=== PATIENT | female | born 1980 | race Caucasian/White ===

== ENCOUNTER 2018-08-11 16:35 | Inpatient (IN) | payer OTHER ==
[2018-08-11] MEDS ORDERED: DEXTROSE 5%-LACTATED RINGERS 1,000 ML IV SCH (17:00)
[2018-08-11] MEDS ORDERED: AMPICILLIN - 2 GM in SODIUM CHLORIDE 100 ML IVPB ONE (17:00)
[2018-08-11] MEDS ORDERED: AMPICILLIN SODIUM 2 GM VIAL ONE (17:03)
[2018-08-11 17:14] VITALS: BMI 33.1
[2018-08-11] MEDS ORDERED: TUBERCULIN PPD 5 TU/0.1ML SYRINGE (IN PATIENT USE ONLY) ID ONE ×2 (18:00)
[2018-08-11 19:16] LABS: BASO % 0.1 % (0-2.0); EOS % 0.3 % (0-4.5); HEMATOCRIT 36.9 % (32.4-45.2); HEMOGLOBIN 12.9 GM/dL (10.7-15.3); LYMPH % 14.5 % (8-40); MCH 31.4 pg (25.7-33.7); MCHC 34.9 g/dl (32.0-36.0); MONO % 5.1 % (3.8-10.2); PLATELET COUNT 150 K/MM3 (134-434); RDW 14.4 % (11.6-15.6); WHITE BLOOD COUNT 6.5 K/mm3 (4.0-10.0)
[2018-08-11 19:47] LABS: INR 0.97 (0.83-1.09); PROTHROMBIN TIME (PATIENT) 11.5 SEC (9.7-13.0)
[2018-08-11 19:49] LABS: ACTIVATED PTT 26.9 SECONDS (25.2-36.5)
[2018-08-11 19:51] LABS: ANION GAP 10 MMOL/L (8-16); BLOOD UREA NITROGEN 10 mg/dL (7-18); CALCIUM 7.6 mg/dL (8.5-10.1); CHLORIDE 106 mmol/L (98-107); CO2 23 mmol/L (21-32); CREATININE 0.6 mg/dL (0.55-1.3); GLUCOSE,RANDOM 166 mg/dL (74-106); POTASSIUM 3.6 mmol/L (3.5-5.1); SODIUM 138 mmol/L (136-145)
--- NOTE | 2018-08-11 19:51 | HP ---
Past Medical History - Primary Care Physician PCP:: Greg Vázquez - Admission Chief Complaint: 39 weeks, prom History Source: Patient Limitations to Obtaining History: No Limitations - Past Medical History ...: 4 ...Para: 3 ...Term: 2 ...: 1 ...EDC by Sono: 08/16/18 - Past Surgical History Hx Myomectomy: No Hx Transabdominal Cerclage: No - Smoking History Smoking history: Never smoked Have you smoked in the past 12 months: No - Alcohol/Substance Use Hx Alcohol Use: No History of Substance Use: reports: None - Social History History of Recent Travel: No Home Medications - Allergies Allergies/Adverse Reactions: Allergies Allergy/AdvReac Type Severity Reaction Status Date / Time No Known Allergies Allergy Verified 08/11/18 17:20 - Home Medications Home Medications: Ambulatory Orders Pnv95/Iron Fum/Folic Acid [ Caplet] 1 tab PO DAILY 02/15/16 Review of Systems - Review of Systems Constitutional: reports: No Symptoms Eyes: reports: No Symptoms HENT: reports: No Symptoms Neck: reports: No Symptoms Cardiovascular: reports: No Symptoms Gastrointestinal: reports: No Symptoms Genitourinary: reports: No Symptoms Musculoskeletal: reports: No Symptoms Integumentary: reports: No Symptoms Neurological: reports: No Symptoms Endocrine: reports: No Symptoms Hematology/Lymphatic: reports: No Symptoms Psychiatric: reports: No Symptoms Physical Exam - Maternity Vital Signs: Vital Signs Temperature 98.0 F 08/11/18 18:00 Pulse Rate 78 08/11/18 19:00 Respiratory Rate 20 08/11/18 19:00 Blood Pressure 126/69 08/11/18 19:00 O2 Sat by Pulse Oximetry (%) Constitutional: Yes: Well Nourished, No Distress, Calm Eyes: Yes: WNL, Conjunctiva Clear, EOM Intact HENT: Yes: WNL, Atraumatic, Normocephalic Neck: Yes: WNL, Supple, Trachea Midline Cardiovascular: Yes: WNL, Regular Rate and Rhythm Breast(s): Yes: WNL - Abdominal Exam/OB Contractions: No Intensity: Unaware Monitor Mode: External Heart Rate Location: [facility] Category: I Accelerations: Uniform Decelerations: None - Vaginal Exam/OB Vaginal Bleediing: No Speculum Exam: No Dilatation (cm): 1 Effacement (%): 20 Amniotic Membrane Status: Ruptured Nitrazine Test: Positive Amniotic Fluid: Yes: Clear Presentation: Vertex/Position Station: -2 - Physical Exam Musculoskeletal: Yes: WNL Edema: Yes Edema: LLE: Trace, RLE: Trace Deep Tendon Reflex Grade: Normal +2 Psychiatric: Yes: WNL - Labs Lab Results: CBC, BMP 08/11/18 18:50 Hemorrhage Risk Assessment - Risk Factors Medium Risk Factors: Yes: None High Risk Factors: Yes: None Risk Score: 1 Risk Level: Medium Risk Problem List - Problems (1) with 39 completed weeks gestation Code(s): Z3A.39 - 39 WEEKS GESTATION OF (2) with 39 completed weeks gestation Code(s): Z3A.39 - 39 WEEKS GESTATION OF (3) PROM (premature rupture of membranes) Code(s): O42.90 - ANDRY ROM, 7TH0 BETW RUPT & ONST LABR, UNSP WEEKS OF GEST Qualifiers: PROM onset of labor timing: onset of labor within 24 hours of rupture PROM gestational age: -third trimester Qualified Code(s): O42.013 - premature rupture of membranes, onset of labor within 24 hours of rupture, third trimester Assessment/Plan plan admit, if no contraction will do cervidil induction rba explained
[2018-08-11] MEDS ORDERED: PROMETHAZINE HCL 25 MG/1 ML VIAL IVPUSH ONE (19:58)
[2018-08-11] MEDS ORDERED: BUTORPHANOL TARTRATE 1 MG/ML VIAL IVPUSH ONE (19:58)
[2018-08-11] MEDS ORDERED: DINOPROSTONE 10 MG VAGINAL SUPPOSITORY VG ONE (19:59)
--- NOTE | 2018-08-11 20:28 | PN ---
Progress Note (short form) - Note Progress Note: Patient is Para 3, at term, with PROM at 11:30 am. Occ. ctx, FH cat 1. Cx 1m, 20% effaced, sta -2. Cervidil placed.
[2018-08-11] MEDS ORDERED: AMPICILLIN SODIUM 1 GM VIAL ONE (21:00)
[2018-08-11] MEDS: AMPICILLIN - 1 GM in SODIUM CHLORIDE 100 ML IVPB SCH (21:07)
--- NOTE | 2018-08-11 23:00 | PN ---
Progress Note (short form) - Note Progress Note: 2245 hrs. Pt. was trying to push. Cx 2 cm., -2. Advised not to push yet. Stadol 1mg offered.
[2018-08-11 23:37] LABS: COCAINE, UR NEGATIVE ng/ml (CUTOFF=300); METHADONE, UR NEGATIVE ng/ml (CUTOFF=300); OPIATES, URI NEGATIVE ng/ml (CUTOFF=300); PHENCYCLIDINE,URINE NEGATIVE ng/ml (CUTOFF=25); URINE AMPHETAMINES NEGATIVE ng/ml (CUTOFF=500); URINE BARBITURATES NEGATIVE ng/ml (CUTOFF=200); URINE BENZODIAZEPINES NEGATIVE ng/ml (CUTOFF=200)
[2018-08-12] MEDS ORDERED: BUTORPHANOL TARTRATE 1 MG/ML VIAL ONE ×2 (00:30)
[2018-08-12] MEDS ORDERED: PROMETHAZINE HCL 25 MG/1 ML VIAL ONE (00:30)
[2018-08-12] MEDS ORDERED: AMPICILLIN SODIUM 1 GM VIAL ONE (00:30)
[2018-08-12] MEDS: AMPICILLIN - 1 GM in SODIUM CHLORIDE 100 ML IVPB SCH ×2 (01:02→05:14)
[2018-08-12] MEDS ORDERED: OXYTOCIN 20 UNITS in 0.9% NS 20 UNIT/1,000 ML INFUS.BAG IV ONE (03:10)
[2018-08-12] MEDS ORDERED: WITCH HAZEL 50% (TUCKS) 40 PAD/JAR PAD TP PRN (03:29)
[2018-08-12] MEDS ORDERED: METHYLERGONOVINE MALEATE 0.2 MG/1 ML AMP IM PRN (03:29)
[2018-08-12] MEDS ORDERED: BENZOCAINE 28 GM HEMORRHOIDAL OINTMENT TP PRN (03:29)
[2018-08-12] MEDS ORDERED: BENZOCAINE 20% 57 GM BOTTLE TP PRN (03:29)
[2018-08-12] MEDS ORDERED: BISACODYL 10 MG SUPP.RECT RC PRN (03:29)
[2018-08-12] MEDS ORDERED: D5W-LR W/ 20 UNITS OXYTOCIN 1,000 ML IV SCH (03:30)
[2018-08-12] MEDS: ACETAMINOPHEN 325 MG TABLET (FP) PO PRN ×4 (03:35→20:42)
[2018-08-12] MEDS: IBUPROFEN 600 MG TABLET (FP) PO PRN ×3 (03:35→20:42)
[2018-08-12] MEDS ORDERED: OXYTOCIN 20 UNITS in 0.9% NS 20 UNIT/1,000 ML INFUS.BAG IV SCH (04:00)
[2018-08-12] MEDS: FERROUS SO4 325 MG TABLET (FP) PO SCH ×2 (08:00→17:23)
[2018-08-12] MEDS ORDERED: FLU VACCINE QUAD 60 MCG/0.5 ML (MDV 18-19) IM ONE (10:00)
[2018-08-12] MEDS: PRENATAL VITAMINS W/ FOLIC ACID TABLET (FP) PO SCH (10:58)
[2018-08-12] MEDS ORDERED: DIPHTH,PERTUSS(ACELL),TET 0.5 ML DISP.SYRIN IM ONE (19:00)
[2018-08-13 07:19] LABS: BASO % 0.4 % (0-2.0); EOS % 1.6 % (0-4.5); HEMATOCRIT 31.8 % (32.4-45.2); HEMOGLOBIN 11.1 GM/dL (10.7-15.3); LYMPH % 29.2 % (8-40); MCH 31.3 pg (25.7-33.7); MCHC 34.8 g/dl (32.0-36.0); MEAN CELL VOLUME 89.9 fl (80-96); MEAN PLT VOLUME 9.3 fl (7.5-11.1); NEUT % 62.8 % (42.8-82.8); PLATELET COUNT 132 K/MM3 (134-434); RBC 3.54 M/mm3 (3.60-5.2); RDW 14.5 % (11.6-15.6); WHITE BLOOD COUNT 5.4 K/mm3 (4.0-10.0)
[2018-08-13] MEDS: ACETAMINOPHEN 325 MG TABLET (FP) PO PRN ×2 (08:28→21:07)
[2018-08-13] MEDS: IBUPROFEN 600 MG TABLET (FP) PO PRN ×2 (08:29→21:06)
[2018-08-13] MEDS: FERROUS SO4 325 MG TABLET (FP) PO SCH ×2 (08:29→16:55)
[2018-08-13] MEDS: PRENATAL VITAMINS W/ FOLIC ACID TABLET (FP) PO SCH (09:12)
--- NOTE | 2018-08-13 15:13 | PN ---
Progress Note (short form) - Note Progress Note: ppd 1 doing well, no c/o , voids ok CBC, BMP 08/13/18 06:44 08/11/18 18:50 Last Vital Signs Temp Pulse Resp BP Pulse Ox 97.7 F 64 18 120/69 99 08/13/18 08:50 08/13/18 08:50 08/13/18 08:50 08/13/18 08:50 08/12/18 04:56 abdomen soft, uterus firm, non tender lochia mild , no calf tenderness plan ambulate , plan for d/c home in am Problem List - Problems (1) with 39 completed weeks gestation Code(s): Z3A.39 - 39 WEEKS GESTATION OF (2) with 39 completed weeks gestation Code(s): Z3A.39 - 39 WEEKS GESTATION OF (3) PROM (premature rupture of membranes) Code(s): O42.90 - ANDRY ROM, 7TH0 BETW RUPT & ONST LABR, UNSP WEEKS OF GEST Qualifiers: PROM onset of labor timing: onset of labor within 24 hours of rupture PROM gestational age: -third trimester Qualified Code(s): O42.013 - premature rupture of membranes, onset of labor within 24 hours of rupture, third trimester
[2018-08-13] MEDS ORDERED: SENNOSIDES/DOCUSATE COMBO (SENNA PLUS) TABLET (UD) PO PRN (22:00)
[2018-08-14] MEDS: FERROUS SO4 325 MG TABLET (FP) PO SCH (07:50)
[2018-08-14] MEDS: IBUPROFEN 600 MG TABLET (FP) PO PRN (07:57)
[2018-08-14] MEDS: ACETAMINOPHEN 325 MG TABLET (FP) PO PRN (07:58)
--- NOTE | 2018-08-14 08:54 | DS ---
Physical Exam-COMMERCIAL FINANCE ANALYST Vital Signs: Vital Signs Temperature 98.3 F 08/13/18 22:00 Pulse Rate 60 08/13/18 22:00 Respiratory Rate 20 08/13/18 22:00 Blood Pressure 125/74 08/13/18 22:00 O2 Sat by Pulse Oximetry (%) 99 08/12/18 04:56 Constitutional: Yes: Well Nourished, No Distress, Calm Eyes: Yes: WNL, Conjunctiva Clear, EOM Intact HENT: Yes: WNL, Atraumatic, Normocephalic Neck: Yes: WNL, Supple, Trachea Midline Cardiovascular: Yes: WNL, Regular Rate and Rhythm Respiratory: Yes: WNL, Regular, CTA Bilaterally Gastrointestinal: Yes: WNL ...Rectal Exam: Yes: WNL Renal/: Yes: WNL ....Post : Yes: Uterus firm, Uterus non-tender, Slight lochia rubra Breast(s): Yes: WNL Musculoskeletal: Yes: WNL Extremities: Yes: WNL Edema: No Integumentary: Yes: WNL Neurological: Yes: WNL, Alert, Oriented ...Motor Strength: WNL Psychiatric: Yes: WNL, Alert, Oriented Labs: CBC, BMP 08/13/18 06:44 08/11/18 18:50 Delivery - Delivery Vaginal Delivery: Spontaneous (no complication) Type of Anesthesia: None Episiotomy/Laceration: None EBL (cc): 300 Delivery, Single - Stages of Labor Date 1st Stage Initiatied: 08/11/18 Time 1st Stage Initiated: 23:00 Date 2nd Stage Initiated: 08/12/18 Time 2nd Stage Initiated: 03:00 Date of Delivery: 08/12/18 Time of Delivery: 03:13 Time Placenta Delivered: 03:15 Placenta: Yes: Spontaneous - 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: Comunas: Lary Latif Infant Gender: Female Weight: 8 lb 5 oz Position: Left, OA Total Hours ROM (Hrs/Mins): 15hr/45mins - 1 Minute Total Score: 9 5 Minutes Total Score: 9 - Feeding Plan Initial Plan: Elected not to breastfeed exclusively throughout hospitalization Discharge Summary Reason For Visit: LABOR Current Active Problems PROM (premature rupture of membranes) (Acute) with 39 completed weeks gestation (Acute) with 39 completed weeks gestation (Acute) Procedures: Principal: AGUSTÍN Hospital Course: no complication Condition: Good - Instructions Diet, Activity, Other Instructions: regular diet, no intercourse, follow up clinic 4 weeks, if pain, heavy vaginal bleeding , fever call MD Referrals: Greg Vázquez MD [Staff Physician] - Disposition: HOME - Home Medications Comprehensive Discharge Medication List: Ambulatory Orders Pnv95/Iron Fum/Folic Acid [ Caplet] 1 tab PO DAILY 02/15/16 Ibuprofen [Motrin -] 600 mg PO QID #28 tablet 08/12/18
[2018-08-14] MEDS: PRENATAL VITAMINS W/ FOLIC ACID TABLET (FP) PO SCH (09:40)
[2018-08-14 10:26] VITALS: BP 119/75; PULSE 69; TEMP 98.4
== END 2018-08-14 12:50 | disposition home or self-care (01) | DRG 560 ==
LOC: JLDR 16:35 → J3W 08-12 04:55
PROVIDERS: ADMIT Obstetrics & Gynecology; ATTEND Obstetrics & Gynecology
PROC: 10E0XZZ Delivery of Products of Conception, External Approach (ICD-10-PCS; principal; 2018-08-12)
PROC: 3E0P7VZ Introduction of Hormone into Female Reproductive, Via Natural or Artificial Opening (ICD-10-PCS; 2018-08-12)
DX: O42.02 Full-term premature rupture of membranes, onset of labor within 24 hours of rupture (principal); Z3A.39 39 weeks gestation of pregnancy; Z37.0 Single live birth
CPT/HCPCS: 36415; 59409; 80048; 80307; 85025; 85610; 85730; 86593; 86850; 86900; 86901; 90686; 90715; G0008

== ENCOUNTER 2022-05-14 11:05 | Inpatient (IN) | payer OTHER ==
[2022-05-14] MEDS ORDERED: DEXTROSE 5%-LACTATED RINGERS 1,000 ML IV SCH (11:30)
[2022-05-14] MEDS ORDERED: PROMETHAZINE HCL 25 MG/1 ML VIAL IVPUSH ONE (11:30)
[2022-05-14] MEDS ORDERED: BUTORPHANOL TARTRATE 2 MG/ML VIAL IVPUSH ONE (11:30)
[2022-05-14] MEDS ORDERED: BUTORPHANOL TARTRATE 2 MG/ML VIAL ONE (12:07)
[2022-05-14] MEDS ORDERED: PROMETHAZINE HCL 25 MG/1 ML VIAL ONE (12:07)
[2022-05-14 13:27] LABS: BASO % 0.2 % (0-2.0); EOS % 0.1 % (0-4.5); HEMATOCRIT 40.5 % (32.4-45.2); HEMOGLOBIN 13.6 GM/dL (10.7-15.3); LYMPH % 12.8 % (8-40); MCH 29.9 pg (25.7-33.7); MCHC 33.6 g/dl (32.0-36.0); MEAN PLT VOLUME 10.6 fl (7.5-11.1); MONO % 3.4 % (3.8-10.2); NEUT % 83.5 % (42.8-82.8); PLATELET COUNT 120 10^3/uL (134-434); RBC 4.55 M/mm3 (3.60-5.2); RDW 14.2 % (11.6-15.6)
[2022-05-14 13:31] LABS: INR 0.95 (0.83-1.09); PROTHROMBIN TIME (PATIENT) 10.9 SEC (9.7-13.0)
[2022-05-14 13:35] LABS: ACTIVATED PTT 28.9 SECONDS (25.2-36.5)
[2022-05-14 13:38] VITALS: BMI 29.7
[2022-05-14 13:48] LABS: CALCIUM 8.7 mg/dL (8.5-10.1)
[2022-05-14 13:49] LABS: BLOOD UREA NITROGEN 11.7 mg/dL (7-18)
[2022-05-14 13:52] LABS: CREATININE 0.5 mg/dL (0.55-1.3)
[2022-05-14] MEDS ORDERED: OXYTOCIN 20 UNITS in 0.9% NS 20 UNIT/1,000 ML INFUS.BAG IV ONE ×2 (14:24→15:46)
[2022-05-14] MEDS ORDERED: WITCH HAZEL 50% (TUCKS) 40 PAD/JAR PAD TP PRN (14:55)
[2022-05-14] MEDS ORDERED: oxyCODONE HCL 5 MG TABLET PO PRN (14:55)
[2022-05-14] MEDS ORDERED: BISACODYL 10 MG SUPP.RECT RC PRN (14:55)
[2022-05-14] MEDS ORDERED: ACETAMINOPHEN 325 MG TABLET (FP) PO PRN (14:55)
[2022-05-14] MEDS ORDERED: BENZOCAINE 20% 57 GM BOTTLE TP PRN (14:55)
[2022-05-14] MEDS ORDERED: BENZOCAINE 28 GM HEMORRHOIDAL OINTMENT TP PRN (14:55)
[2022-05-14] MEDS ORDERED: METHYLERGONOVINE MALEATE 0.2 MG/1 ML AMP IM PRN (14:55)
[2022-05-14] MEDS ORDERED: OXYTOCIN 20 UNITS in 0.9% NS 20 UNIT/1,000 ML INFUS.BAG IV SCH (15:00)
[2022-05-14] MEDS ORDERED: ACETAMINOPHEN 325 MG TABLET (FP) ONE (15:46)
[2022-05-14] MEDS: IBUPROFEN 600 MG TABLET (FP) PO PRN (18:05)
[2022-05-15] MEDS: IBUPROFEN 600 MG TABLET (FP) PO PRN ×4 (00:24→21:24)
[2022-05-15 09:40] LABS: BASO % 0.2 % (0-2.0); EOS % 0.2 % (0-4.5); HEMOGLOBIN 12.5 GM/dL (10.7-15.3); LYMPH % 16.9 % (8-40); MCH 30.5 pg (25.7-33.7); MCHC 33.9 g/dl (32.0-36.0); MEAN CELL VOLUME 90.1 fl (80-96); MEAN PLT VOLUME 10.9 fl (7.5-11.1); MONO % 3.2 % (3.8-10.2); NEUT % 79.5 % (42.8-82.8); PLATELET COUNT 99 10^3/uL (134-434); RBC 4.11 M/mm3 (3.60-5.2); RDW 14.5 % (11.6-15.6); WHITE BLOOD COUNT 6.9 K/mm3 (4.0-10.0)
[2022-05-15] MEDS ORDERED: SENNOSIDES/DOCUSATE COMBO (SENNA PLUS) TABLET (UD) PO PRN (22:00)
[2022-05-16] MEDS: IBUPROFEN 600 MG TABLET (FP) PO PRN ×2 (01:50→08:11)
[2022-05-16 09:15] VITALS: BP 104/55; PULSE 70; RESP 18; TEMP 98
== END 2022-05-16 14:38 | disposition home or self-care (01) | DRG 560 ==
LOC: JLDR 11:05 → J3W 17:46
PROVIDERS: ADMIT Obstetrics & Gynecology; ATTEND Obstetrics & Gynecology
PROC: 10E0XZZ Delivery of Products of Conception, External Approach (ICD-10-PCS; principal; 2022-05-14)
DX: O36.63X0 Maternal care for excessive fetal growth, third trimester, not applicable or unspecified (principal); O24.420 Gestational diabetes mellitus in childbirth, diet controlled; O77.0 Labor and delivery complicated by meconium in amniotic fluid; Z3A.38 38 weeks gestation of pregnancy; Z37.0 Single live birth
CPT/HCPCS: 36415; 59409; 80048; 82962; 85025; 85610; 85730; 86780; 86850; 86900; 86901; C9803-CS; U0003; U0005

== ENCOUNTER 2022-07-16 04:05 | Day surgery (SDC) | payer OTHER ==
[2022-07-10 12:45] VITALS: BMI 35.0
[~2022-07-16 04:05] MED LIST: ceFAZolin SODIUM 1 GM VIAL IVPB ONE
[2022-07-16] MEDS ORDERED: ROCURONIUM BROMIDE 50 MG/5 ML SYRINGE ONE (13:16)
[2022-07-16] MEDS ORDERED: SUCCINYLCHOLINE CHLORIDE 200 MG/10 ML SYRINGE ONE (13:16)
[2022-07-16] MEDS ORDERED: LIDOCAINE HCL/PF 2% SDV 5ML VIAL ONE (13:16)
[2022-07-16] MEDS ORDERED: MIDAZOLAM HCL 2 MG/2 ML SINGLE DOSE VIAL ONE (13:16)
[2022-07-16] MEDS ORDERED: PROPOFOL 20 ML ONE (13:16)
[2022-07-16] MEDS ORDERED: DEXAMETHASONE SOD PHOSPHATE 4 MG/1 ML VIAL ONE (13:50)
[2022-07-16] MEDS ORDERED: ceFAZolin SODIUM 1 GM VIAL ONE (13:50)
[2022-07-16] MEDS ORDERED: ceFAZolin SODIUM 1 GM VIAL IVPB ONE (13:50)
[2022-07-16] MEDS ORDERED: KETOROLAC TROMETHAMINE 30 MG/1 ML VIAL ONE (13:54)
[2022-07-16] MEDS ORDERED: ONDANSETRON 4 MG/2 ML VIAL ONE (13:54)
[2022-07-16] MEDS ORDERED: BUPIVACAINE HCL/PF 0.5% (5MG/ML) 10 ML VIAL NR ONE (14:06)
[2022-07-16] MEDS ORDERED: NEOSTIGMINE METHYLSULFATE 0.5 MG/1 ML - 10 ML MDV ONE (14:18)
[2022-07-16] MEDS ORDERED: ONDANSETRON 4 MG/2 ML VIAL IVPUSH PRN ×2 (14:35→15:24)
[2022-07-16] MEDS ORDERED: PROMETHAZINE HCL 25 MG/1 ML VIAL IVPUSH PRN (14:35)
[2022-07-16] MEDS ORDERED: oxyCODONE HCL 5 MG TABLET PO PRN ×3 (14:35→15:24)
[2022-07-16] MEDS ORDERED: ACETAMINOPHEN 1000 MG/100 ML BAG IVPB ONE ×2 (14:36→14:53)
[2022-07-16] MEDS ORDERED: LACTATED RINGERS SOLUTION 1,000 ML IV SCH (14:45)
[2022-07-16] MEDS ORDERED: ACETAMINOPHEN INJECTION 100 ML IVPB ONE (14:50)
[2022-07-16] MEDS ORDERED: IBUPROFEN 600 MG TABLET (FP) PO PRN (15:24)
[2022-07-16] MEDS ORDERED: IBUPROFEN 800 MG/8 ML IJ IVPB PRN (15:24)
[2022-07-16] MEDS ORDERED: ELECTROLYTE-148 SOLN 1,000 ML IV SCH (15:30)
[2022-07-16 16:18] VITALS: TEMP 97.5
[2022-07-16 16:53] VITALS: RESP 20
[2022-07-16 18:47] VITALS: BP 125/80; PULSE 84
== END 2022-07-16 18:00 | disposition home or self-care (01) ==
LOC: JASU-SURG 04:05
PROVIDERS: ATTEND Obstetrics & Gynecology
PROC: 0UT74ZZ Resection of Bilateral Fallopian Tubes, Percutaneous Endoscopic Approach (ICD-10-PCS; principal; 2022-07-16 13:00)
DX: Z30.2 Encounter for sterilization (principal)
CPT/HCPCS: 81025; 87086; 88302-TC; 94760